=== PATIENT | male | born 1960 | race Caucasian/White ===

== ENCOUNTER 2022-08-07 18:18 | Inpatient (IN) | payer OTHER ==
[~2022-08-07] VITALS: Ht 172.7 cm; Wt 80.2 kg
[~2022-08-07 18:18] MED LIST: AMIT50 PO; Ativan1 MG PO; CODACE30; DESVENLAFAXINE50 MG PO; FISH1000; Hair, Skin & N1 EACH; LAMICTAL ODT (1 EAC1 PO; LEVSOD50 PO; LISI20 PO; PREG25; SUMA25 PO; TOPI50 PO; TRAM50 PO; VICODIN 5-3001 EACH; ZOLP10 PO
[2022-08-07 19:10] LABS: BASOPHILS ABSOLUTE AUTO 0.05 K/mm3 (0.00-0.23); BASOPHILS PERCENT AUTO 0 % (0-2); EOSINOPHILS ABSOLUTE AUTO 0.02 K/mm3 (0.00-0.68); EOSINOPHILS PERCENT AUTO 0 % (0-6); Hematocrit 44.8 % (37.0-53.0); Hemoglobin 15.9 g/dL (13.5-17.5); IMMATURE GRAN ABSOLUTE AUTO 0.05 K/mm3 (0.00-0.10); IMMATURE GRAN PERCENT AUTO 0 % (0-1); LYMPHOCYTES ABSOLUTE AUTO 1.76 K/mm3 (0.84-5.20); LYMPHOCYTES PERCENT AUTO 11 % (21-46); MONOCYTES ABSOLUTE AUTO 1.42 K/mm3 (0.16-1.47); MONOCYTES PERCENT AUTO 9 % (4-13); Mean Corpuscular HGB 32.1 pg (26.0-34.0); Mean Corpuscular HGB Conc 35.5 g/dL (31.5-36.5); Mean Corpuscular Volume 91 fL (80-100); Mean Platelet Volume 11.9 fL (9.1-12.4); NEUTROPHILS ABSOLUTE AUTO 12.65 K/mm3 (1.96-9.15); NEUTROPHILS PERCENT AUTO 79 % (41-73); Platelet Count 182 K/mm3 (150-400); RDW Coefficient Variation 12.4 % (11.7-14.2); RDW Standard Deviation 40.9 fL (35.1-46.3); Red Blood Cell Count 4.95 M/mm3 (4.30-5.90); White Blood Cell Count 15.95 K/mm3 (4.00-11.30)
[2022-08-07 19:30] LABS: Albumin, Blood 3.2 g/dL (3.4-5.0); Bilirubin, Total 0.4 mg/dL (0.1-1.0); Bun/Creatinine Ratio 10.4 (12.0-20.0); Calcium, Blood 8.9 mg/dL (8.5-10.1); Creatinine, Blood 1.06 mg/dL (0.60-1.20); Globulin, Blood 3.2 g/dL (2.2-4.0); Potassium, Blood 3.8 mmol/L (3.5-5.5); Total Protein, Blood 6.4 g/dL (6.4-8.2)
[2022-08-07] MEDS ORDERED: RIZATRIPTAN10 MG SL (23:21)
[2022-08-07] MEDS ORDERED: PROM25 PO (23:22)
[2022-08-07] MEDS ORDERED: PRAM.5 PO (23:23)
--- NOTE | 2022-08-08 04:19 | NUR ---
SHIFT SUMMARY PT ER ADMIT THIS SHIFT FOR APPENDICITIS. HE HAS RECEIVED IV ANTIBIOTICS PER EMAR. PT PAIN HAS BEEN MANAGEABLE, HE HAS DECLINED ANYTHING FOR PAIN. NO N/V. VITALS STABLE. PT A/OX4, INDEPENDENT IN THE ROOM. PLAN IS FOR SURGERY TODAY.
[2022-08-08 04:50] LABS: BASOPHILS ABSOLUTE AUTO 0.03 K/mm3 (0.00-0.23); BASOPHILS PERCENT AUTO 0 % (0-2); EOSINOPHILS ABSOLUTE AUTO 0.02 K/mm3 (0.00-0.68); EOSINOPHILS PERCENT AUTO 0 % (0-6); Hemoglobin 14.6 g/dL (13.5-17.5); IMMATURE GRAN ABSOLUTE AUTO 0.03 K/mm3 (0.00-0.10); IMMATURE GRAN PERCENT AUTO 0 % (0-1); LYMPHOCYTES ABSOLUTE AUTO 1.32 K/mm3 (0.84-5.20); LYMPHOCYTES PERCENT AUTO 11 % (21-46); MONOCYTES ABSOLUTE AUTO 1.04 K/mm3 (0.16-1.47); MONOCYTES PERCENT AUTO 9 % (4-13); Mean Corpuscular HGB 32.3 pg (26.0-34.0); Mean Corpuscular HGB Conc 35.6 g/dL (31.5-36.5); Mean Corpuscular Volume 91 fL (80-100); Mean Platelet Volume 11.1 fL (9.1-12.4); NEUTROPHILS ABSOLUTE AUTO 9.26 K/mm3 (1.96-9.15); NEUTROPHILS PERCENT AUTO 79 % (41-73); Platelet Count 158 K/mm3 (150-400); RDW Coefficient Variation 12.4 % (11.7-14.2); RDW Standard Deviation 41.3 fL (35.1-46.3); Red Blood Cell Count 4.52 M/mm3 (4.30-5.90)
[2022-08-08 05:11] LABS: Bun/Creatinine Ratio 8.9 (12.0-20.0); Calcium, Blood 8.5 mg/dL (8.5-10.1); Creatinine, Blood 1.12 mg/dL (0.60-1.20); Potassium, Blood 3.7 mmol/L (3.5-5.5)
--- NOTE | 2022-08-08 10:28 | NUR ---
PT TO OR.
--- NOTE | 2022-08-08 13:19 | NUR ---
PT ARRIVED TO UNIT FROM PACU STOOD W/SBA AND TRANSFERRED FROM [facility] TO BED. VSS. REPORTS PAIN TOLERABLE, RATING 3/10. DENIES N/V OR SOB. LAP INCISIONS TO ABD X3 W/STERI STRIPS ARE CDI. CALL LIGHT IN REACH.
--- NOTE | 2022-08-08 17:06 | NUR ---
SUMMARY PT POD 0 FOR LAP APPY. VSS. PT TOLERATING PO, DENIES N/V OR SOB. STATES PAIN IS TOLERABLE AT THIS TIME AND HAS NOT REQUIRED PAIN MEDS. KPAD TO ABD FOR COMFORT. CALL LIGHT IN REACH.
--- NOTE | 2022-08-09 06:18 | NUR ---
Assumed care at 1900, patient alert and oriented. PRN pain med given x1. Surgical sites clean, dry, and intact. Slept comfortable through out the night. No questions or concerns at this time.
[2022-08-09] MEDS ORDERED: AMOCLA875 PO (11:05)
[2022-08-09] MEDS ORDERED: Norco 5-325 Ta1 EACH PO (11:05)
--- NOTE | 2022-08-09 11:45 | NUR ---
DISCHARGE X3 LAP SITES WITH STERI STRIPS APPEAR WNL. PAIN MANEGED WELL PER EMAR. PATIENT EATING, DRINKING, & VOIDING WELL. DISCUSSED DISCHARGE INSTRUCTIONS AND SENT WITH PATIENT. ESCORTED OUT VIA W/C.
== END 2022-08-09 11:45 | disposition home or self-care (01) | DRG 343 ==
LOC: ER 18:18 → SURS 21:33
PROVIDERS: Student in an Organized Health Care Education/Training Program; ADMIT Surgery
PROC: 0DTJ4ZZ Resection of Appendix, Percutaneous Endoscopic Approach (ICD-10-PCS; principal; 2022-08-08 10:30)
DX: K35.30 Acute appendicitis with localized peritonitis, without perforation or gangrene (principal); I10 Essential (primary) hypertension; G47.30 Sleep apnea, unspecified; G43.909 Migraine, unspecified, not intractable, without status migrainosus; M79.7 Fibromyalgia; Z98.890 Other specified postprocedural states; Z79.899 Other long term (current) drug therapy; Z79.811 Long term (current) use of aromatase inhibitors; Z79.891 Long term (current) use of opiate analgesic; Z99.81 Dependence on supplemental oxygen
CPT/HCPCS: 36415; 74177; 80048; 80053; 83690; 84484; 85025; 88304; 93005; 93010; 94660; 94762; 96365-59; 99285-25; A9270; J0295; J0696; J1100; J1885; J2270; J2405; J2704; J2795; J3010; J7030; J7120; Q9967

== ENCOUNTER → 2023-05-31 | Outpatient (CLI) | payer OTHER ==
[~2023-05-31] MED LIST changes: +AMOCLA875 PO; +Norco 5-325 Ta1 EACH PO; +PRAM.5 PO; +PROM25 PO; +RIZATRIPTAN10 MG SL
== END ==
LOC: LAB 10:04 → LAB SHORT 10:04
DX: L30.8 Other specified dermatitis (principal)
CPT/HCPCS: 88305; 88312